=== PATIENT | female | born 1955 | race Two or more races ===

== ENCOUNTER 2018-08-11 08:55 | Emergency (ER) | payer OTHER ==
[2018-08-11 09:03] VITALS: BP 133/79
--- NOTE | 2018-08-11 09:34 | UC ---
HPI Wound/Suture Re-check - HPI Summary HPI Summary: PATIENT HAD A SKIN LESION EXCISED 3 DAYS AGO IN [place]. INCISION SITE WAS SUTURED CLOSED AND STERI-STRIPS WERE APPLIED. THERE IS A SMALL AMOUNT OF DRIED BLOOD UNDER THE STERI-STRIPS AND PATIENT COMES IN CONCERNED ABOUT THIS AND WONDERING IF THE STERI-STRIPS NEED TO BE CHANGED. SHE DENIES ANY REDNESS, SWELLING, DRAINAGE OR INCREASED PAIN. NO FEVER. - History Of Current Complaint Chief Complaint: [employer] Stated Complaint: CHANGE BANDAID ON STITCHES Time Seen by Provider: 08/11/18 09:04 Hx Obtained From: Patient Severity: Mild Pain Intensity: 0 Pain Scale Used: 0-10 Numeric - Allergies/Home Medications Allergies/Adverse Reactions: Allergies Allergy/AdvReac Type Severity Reaction Status Date / Time No Known Allergies Allergy Verified 08/11/18 09:03 Home Medications: Home Medications NK [No Home Medications Reported] 08/11/18 [History Confirmed 08/11/18] PMH/Surg Hx/FS Hx/Imm Hx Previously Healthy: Yes - Surgical History Surgical History: None - Family History Known Family History: Negative: Hypertension - Social History Alcohol Use: None Substance Use Type: None Smoking Status (MU): Never Smoked Tobacco Review of Systems Constitutional: Negative Skin: Other - HEALING WOUND ON FOREHEAD Respiratory: Negative Cardiovascular: Negative Gastrointestinal: Negative All Other Systems Reviewed And Are Negative: Yes Physical Exam Triage Information Reviewed: Yes Appearance: Well-Appearing, No Pain Distress, Well-Nourished Vital Signs: Initial Vital Signs Temp 97.4 F 08/11/18 08:59 Pulse 52 08/11/18 08:59 Resp 18 08/11/18 08:59 BP 133/79 08/11/18 08:59 Pulse Ox 100 08/11/18 08:59 Vital Signs Reviewed: Yes Eyes: Positive: Conjunctiva Clear ENT: Positive: Hearing grossly normal Neck: Positive: Supple Respiratory: Positive: No respiratory distress, No accessory muscle use Cardiovascular: Positive: Pulses Normal Abdomen Description: Positive: Soft Musculoskeletal: Positive: No Edema Neurological: Positive: Alert Psychological: Positive: Age Appropriate Behavior Skin: Positive: Other - INCISION ON FOREHEAD WITH STERISTRIPS IN PLACE. SMALL AMOUNT OF DRIED BLOOD UNDERNEATH. NO ERYTHEMA OR DRAINAGE OR SWELLING. Course/Dx - Differential Dx - Laceration/Wound Provider Diagnoses: HEALING WOUND ON FOREHEAD Discharge - Sign-Out/Discharge Documenting (check all that apply): Patient Departure All imaging exams completed and their final reports reviewed: No Studies - Discharge Plan Condition: Stable Disposition: HOME Referrals: Erma Walker MD [Primary Care Provider] - If Needed Additional Instructions: YOUR INCISION LOOKS TO BE HEALING WELL. THERE IS A SMALL AMOUNT OF DRIED BLOOD UNDER STERI-STRIPS WHICH IS NOT CONCERNING. DO NOT TRY TO PEEL THE STERI- STRIPS OFF PREMATURELY THIS MAY DISRUPT THE STITCHES UNDERNEATH. THERE IS NO SIGN OF INFECTION TODAY. DO NOT COVER WITH ANY ADDITIONAL OINTMENTS. OKAY TO PUT A LOOSE NONSTICK BANDAGE OVER THE AREA TO PROTECT IT FROM SPLATTER WHILE AT WORK. BE CAREFUL NOT TO PUT ANY ADHESIVE PARTS OF THE BANDAGE ON TOP OF THE STERI-STRIPS. KEEP YOUR FOLLOW-UP APPOINTMENT IN [place] SCHEDULED. - Billing Disposition and Condition Condition: STABLE Disposition: Home
== END 2018-08-11 09:24 | disposition home or self-care (01) ==
LOC: UCEAST 08:55
DX: Z48.817 Encounter for surgical aftercare following surgery on the skin and subcutaneous tissue (principal)
CPT/HCPCS: 99211; G0463